=== PATIENT | female | born 1960 | race Caucasian/White ===

== ENCOUNTER 2016-06-22 12:04 | Day surgery (SDC) | payer BC ==
--- NOTE | 2016-06-22 06:08 | PCM.HP ---
H&P History of Present Illness - General Date of Service: 06/22/16 Admit Problem/Dx: history of incomplete colonoscopy, hx of hematochezia, history of diarrhea, history of MRSA-positive stool culture, reflux, hiatal hernia Source of Information: Patient - History of Present Illness Initial Comments - Free Text/Narative: The patient is a 56-year-old female referred by Supriya Canseco NP for colonoscopy. She was last evaluated on 05/16/16 and reports no/the following changes to her health . She denies any constipation/diarrhea/hematochezia. she does have some intermittent lower quadrant pain. CT scan was advised at last visit. She had "things come up" and has not completed this. She still does have reflux and does avoid spicy foods and eating late. She does take Zantac for this. She does have a hx of MRSA in stool culture in 2016. 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 I did contact Dr. Cordova at [facility] regarding stool culture. NO need to repeat culture/intervention if patient is asymptomatic. Hx of incomplete for bloody stools, diarrhea, hx of MRSA in stool culture. She reports she had a colonoscopy to evaluate her symptoms and this was incomplete as she could not complete the GoLYTELY prep. She was evaluated on 06/28/2015 at the [facility] emergency department. At that time she did have a slightly elevated white count at 13.59. Neutrophil count was elevated at 80. Lymphocytes were low at 10. CMP did show glucose elevated 117. Otherwise was normal, however, albumin was slightly low at 3. EKG showed normal ECG in sinus rhythm. She was treated with Cipro by the emergency department. I do see that the MRSA culture showed resistance to Cipro. Patient was evaluated 06/30/2015 by her primary care provider. Per note microbiology staff was consulted and Cipro course was extended. The patient had a incomplete colonoscopy on 07/20/2015. Colonoscopy was aborted due to inadequate prep. There was liquid and particulate matter throughout the entire rectum and lower sigmoid areas. Patient reports she "Took Cipro and cleared things up." - Related Data Allergies/Adverse Reactions: Allergies Allergy/AdvReac Type Severity Reaction Status Date / Time sulfa Allergy Hives Uncoded 06/21/16 16:30 Home Medications: Home Meds Levothyroxine Sodium [Synthroid] 200 mcg PO DAILY 06/27/15 [History] Sertraline HCl [Zoloft] 100 mg PO DAILY 06/27/15 [History] Fexofenadine/Pseudoephedrine [Carola-D 12 Hour] 1 tab PO BID PRN 06/21/16 [ History] Fish Oil/[place]-3 Fatty Acids [Fish Oil 1,000 MG] 1,000 mg PO DAILY 06/21/16 [ History] Fluticasone Propionate [Flonase Allergy Relief] 1 spray NASBOTH DAILY PRN [History] Multivitamin [Daily Mynor] 1 tab PO DAILY 06/21/16 [History] Past Medical History HEENT History: Reports: Impaired Vision Cardiovascular History: Reports: None Respiratory History: Reports: None Gastrointestinal History: Reports: Hiatal Hernia, Other (See Below) Other Gastrointestinal History: hematochezia, diarrhea, RLQ pain 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 Neurological History: Reports: None Psychiatric History: Reports: Anxiety, Depression Endocrine/Metabolic History: Reports: Hypothyroidism Hematologic History: Reports: None Immunologic History: Reports: None Oncologic (Cancer) History: Reports: None Dermatologic History: Reports: None - Past Surgical History Head Surgeries/Procedures: Reports: None HEENT Surgical History: Reports: Cataract Surgery, Tonsillectomy GI Surgical History: Reports: Colonoscopy, EGD Female Surgical History: Reports: Section Musculoskeletal Surgical History: Reports: Other (See Below) Other Musculoskeletal Surgeries/Procedures:: neck fusion of T2T3T4 Social & Family History - Tobacco Use Smoking Status *Q: Never Smoker Second Hand Smoke Exposure: No - Recreational Drug Use Recreational Drug Use: No Drug Use in Last 12 Months: No H&P Review of Systems - Review of Systems: Review Of Systems: See Below Free Text/Narrative: Denies any exertional chest pain or shortness of breath. History of any easy bleeding or bruising. No personal or familial history of clotting or bleeding disorders. No history of anesthetic complications. No history of familial anesthetic complications. Denies presence/history of chest pain, palpitations, lower extremity edema, dyspnea at rest, orthopnea, claudication, wheezing, obstructive sleep apnea, chronic cough, upper respiratory symptoms in the last two weeks. No history of blood thinner use. No history of anemia. No history of seizure or stroke. No history of fever, chills, or nightsweats. No prior cardiology or pulmonology evaluation. All other systems reviewed and were negative except as per history of present illness. General: Reports: No Symptoms. Denies: Fever, Chills HEENT: Reports: No Symptoms Pulmonary: Reports: No Symptoms. Denies: Shortness of Breath Cardiovascular: Reports: No Symptoms. Denies: Chest Pain, Palpitations Gastrointestinal: Reports: Other (see hpi) Genitourinary: Reports: No Symptoms Musculoskeletal: Reports: No Symptoms Skin: Reports: No Symptoms Psychiatric: Reports: No Symptoms Neurological: Reports: No Symptoms Hematologic/Lymphatic: Reports: No Symptoms Immunologic: Reports: No Symptoms Exam - Exam Exam: See Below - Vital Signs Weight: 99.79 kg - Exam General: Alert, Oriented HEENT: Conjunctiva Clear. No: Scleral Icterus Lungs: Clear to Auscultation, Normal Respiratory Effort Cardiovascular: Regular Rate, Regular Rhythm, Normal S1, Normal S2 Abdomen: Soft. No: Tenderness Back Exam: Normal Inspection Extremities: Normal Inspection. No: Clubbing, Edema Skin: Warm, Dry, Intact Neuro Extensive - Mental Status: Alert, Oriented x3, Normal Mood/Affect, Normal Cognition, Memory Intact Psychiatric: Alert, Normal Affect, Normal Mood *Q Meaningful Use (ADM) - VTE *Q VTE Criteria *Q: - Stroke *Q Stroke Criteria *Q: - AMI *Q AMI Criteria *Q: - Problem List (1) Hematochezia SNOMED Code(s): 346711555 ICD Code: K92.1 - MELENA Status: Acute Current Visit: Yes (2) History of diarrhea SNOMED Code(s): 642955578 ICD Code: Z87.898 - PERSONAL HISTORY OF OTHER SPECIFIED CONDITIONS Status: Acute Current Visit: Yes (3) MRSA (methicillin resistant staph aureus) culture positive SNOMED Code(s): 944967520, 311368840 ICD Code: Z22.322 - CARRIER OR SUSPECTED CARRIER OF METHICILLIN RESIS STAPH Status: Acute Current Visit: Yes (4) Reflux esophagitis SNOMED Code(s): 228273893 ICD Code: K21.0 - GASTRO-ESOPHAGEAL REFLUX DISEASE WITH ESOPHAGITIS Status : Acute Current Visit: Yes (5) Hiatal hernia SNOMED Code(s): 41351071 ICD Code: K44.9 - DIAPHRAGMATIC HERNIA WITHOUT OBSTRUCTION OR GANGRENE Status: Acute Current Visit: Yes Problem List Initiated/Reviewed/Updated: Yes Assessment/Plan Comment:: 56yr female with history of incomplete colonoscopy, hx of hematochezia, history of diarrhea, history of MRSA-positive stool culture, reflux, hiatal hernia need for repeat diagnostic colonoscopy with possible hemorrhoidal banding and diagnostic EGD Patient can perform 4 METS of physical activity without chest pain or shortness of breath. Chronic lower abdominal pain PLAN: We discussed performing a diagnostic Colonoscopy with possible hemorrhoidal banding and diagnostic EGD. We discussed the procedure and risks and benefits including, pain, bleeding, damage to surrounding structures, need for additional procedure and bowel perforation. . This procedure will be done at [facility] due to BMI of 43.01 Patient completed 2 days of clear liquid diet, with MiraLAX prep with Amitiza she was unable to finish or tolerate the GoLYTELY previously. She has had intermittent lower abdominal pain since July 2015 with her bout of diarrhea and bloody stools. CT the abdomen and pelvis with IV and oral contrast was previoulsy ordered further evaluate patient did not have this completed as recommended. She does plan to have this completed after endoscopy. This patient was evaluated with Dr. Josephine Martínez, plan formulated by Dr. Josephine Mejias NP scribing for Dr Josephine Martínez
[~2016-06-22 12:04] MED LIST: Lactated Ringers 1,000 ML IV SCH; Lidocaine 1%/Sod Bicarbonate in NS 8.4% 1 ML Syringe IV PRN; Sodium Chloride 0.9% 10 ML Syringe FLUSH PRN
[2016-06-22] MEDS ORDERED: Lidocaine 1% 6 ML ONE (12:13)
[2016-06-22] MEDS ORDERED: fentaNYL 100 MCG/2 ML SDV ONE (12:14)
[2016-06-22] MEDS ORDERED: Propofol 200 MG/20 ML SDV ONE ×3 (12:14→15:05)
[2016-06-22] MEDS ORDERED: Midazolam 1 MG/ML 2 ML SDV ONE (12:14)
--- NOTE | 2016-06-22 12:58 | PCM.PREANE ---
Preanesthetic Assessment - Anesthesia/Transfusion/Family Hx Anesthesia History: Prior Anesthesia Without Reaction Family History of Anesthesia Reaction: No Transfusion History: Unknown Type of Transfusion Reactions: Reports: Unknown - Review of Systems General: No Symptoms, Other (MRSA positive) Pulmonary: No Symptoms Cardiovascular: No Symptoms Gastrointestinal: Other (hiatal hernia, GERD) Neurological: No Symptoms, Other (S/P T2-4 fusion) Other: Reports: Thyroid Problems, Anxiety - Physical Assessment NPO Status Date: 06/22/16 NPO Status Time: 03:00 Pulse: 77 O2 Sat by Pulse Oximetry: 98 Respiratory Rate: 20 Blood Pressure: 163/96 Vital Signs: Last Vital Signs Temp 36.5 C 06/22/16 12:39 Pulse 77 06/22/16 12:39 Resp 20 06/22/16 12:39 BP 163/96 H 06/22/16 12:39 Pulse Ox 98 06/22/16 12:39 Height: 1.68 m Weight: 99.79 kg ASA Class: 2 Mental Status: Alert & Oriented x3 Airway Class: Mallampati = 2 Dentition: Reports: Normal Dentition Thyro-Mental Finger Breadths: 3 Mouth Opening Finger Breadths: 3 ROM/Head Extension: Full Lungs: Clear to auscultation, Normal respiratory effort Cardiovascular: Regular Rate, Regular Rhythm - Allergies Allergies/Adverse Reactions: Allergies Allergy/AdvReac Type Severity Reaction Status Date / Time sulfa Allergy Hives Uncoded 06/21/16 16:30 - Blood Blood Available: No Product(s) Available: None - Anesthesia Plan Pre-Op Medication Ordered: None - Acknowledgements Anesthesia Type Planned: MAC Pt an Appropriate Candidate for the Planned Anesthesia: Yes Alternatives and Risks of Anesthesia Discussed w Pt/Guardian: Yes Pt/Guardian Understands and Agrees with Anesthesia Plan: Yes PreAnesthesia Questionnaire HEENT History: Reports: Impaired Vision Cardiovascular History: Reports: None Respiratory History: Reports: None Gastrointestinal History: Reports: Hiatal Hernia, Other (See Below) Other Gastrointestinal History: hematochezia, diarrhea, RLQ pain 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 Neurological History: Reports: None Psychiatric History: Reports: Anxiety, Depression Endocrine/Metabolic History: Reports: Hypothyroidism Hematologic History: Reports: None Immunologic History: Reports: None Oncologic (Cancer) History: Reports: None Dermatologic History: Reports: None - Past Surgical History Head Surgeries/Procedures: Reports: None HEENT Surgical History: Reports: Cataract Surgery, Tonsillectomy GI Surgical History: Reports: Colonoscopy, EGD Female Surgical History: Reports: Section Musculoskeletal Surgical History: Reports: Other (See Below) Other Musculoskeletal Surgeries/Procedures:: neck fusion of T2T3T4 - SUBSTANCE USE Smoking Status *Q: Never Smoker Second Hand Smoke Exposure: No Recreational Drug Use History: No - HOME MEDS Home Medications: Home Meds Levothyroxine Sodium [Synthroid] 200 mcg PO DAILY 06/27/15 [History] Sertraline HCl [Zoloft] 100 mg PO DAILY 06/27/15 [History] Fexofenadine/Pseudoephedrine [Carola-D 12 Hour] 1 tab PO BID PRN 06/21/16 [ History] Fish Oil/[place]-3 Fatty Acids [Fish Oil 1,000 MG] 1,000 mg PO DAILY 06/21/16 [ History] Fluticasone Propionate [Flonase Allergy Relief] 1 spray NASBOTH DAILY PRN [History] Multivitamin [Daily Mynor] 1 tab PO DAILY 06/21/16 [History] - CURRENT (IN HOUSE) MEDS Current Meds: Current Medications Lactated Ringer's (Ringers, Lactated) 1,000 mls @ 125 mls/hr IV ASDIRECTED [facility] Stop: 06/22/16 23:00 Last Admin: 06/22/16 12:36 Dose: 125 mls/hr Lidocaine/Sodium Bicarbonate (Buffered Lidocaine 1% In Ns 8.4%) 0.25 ml IV ONETIME PRN PRN Reason: Prior to IV Start Stop: 06/22/16 18:00 Last Admin: 06/22/16 12:36 Dose: 0.25 ml Sodium Chloride (Saline Flush) 10 ml FLUSH ASDIRECTED PRN PRN Reason: Keep Vein Open Stop: 06/22/16 18:00 Discontinued Medications Fentanyl (Sublimaze) Confirm Administered Dose 100 mcg .ROUTE .STK-MED ONE Stop: 06/22/16 12:15 Lidocaine HCl (Xylocaine-Mpf 1%) Confirm Administered Dose 6 mls @ as directed .ROUTE .STK-MED ONE Stop: 06/22/16 12:14 Midazolam HCl (Versed 1 Mg/Ml) Confirm Administered Dose 2 mg .ROUTE .STK-MED ONE Stop: 06/22/16 12:15 Propofol (Diprivan 20 Ml) Confirm Administered Dose 200 mg .ROUTE .[facility] Stop: 06/22/16 12:15
--- NOTE | 2016-06-22 14:15 | PCM.OPNOTE ---
- General Post-Op/Procedure Note Date of Surgery/Procedure: 06/22/16 Operative Procedure(s): 1. Diagnostic EGD with cold forceps biopsy. 2. Diagnostic colonoscopy Pre Op Diagnosis: History of incomplete colonoscopy, history of hematochezia, history of diarrhea, reflux, history of hiatal hernia Post-Op Diagnosis: Gastritis, gastric ulcers, duodenitis, duodenal ulcers in D1 and D2, normal appearing colon Anesthesia Technique: MAC Primary Surgeon: Josephine Martínez Anesthesia Provider: Melissa Phoenix Registered Nurse: Zayra Tomlinson Pathology: 1. Small bowel biopsy 2. Antral biopsy 3. Distal esophageal biopsy Fluid Replacement, Intraop: 900 (mL crystalloid ) EBL in mLs: 2 Complications: None Condition: Good Free Text/Narrative:: INDICATION FOR PROCEDURE: The patient is a 56-year-old woman who was referred to me by AUNG Santana for evaluation for a history of incomplete colonoscopy, history of hematochezia and diarrhea, reflux and history of hiatal hernia. Performing a colonoscopy and EGD and the associated risks of the procedures had been discussed with the patient. The patient found these risks acceptable and agreed to proceed. DESCRIPTION OF PROCEDURE: The patient was taken to the operating room and placed in the left lateral decubitus position. After induction of adequate sedation, a bite block was placed. A standard Olympus gastroscope was inserted into the oropharynx and guided down the esophagus without difficulty. The gastroesophageal junction was appreciated at 39 cm from the teeth. There was no evidence of stricture or esophageal ulcerations. The scope was advanced into the stomach, and there was gastritis and cratered and linear antral ulcers which were nonbleeding. The scope was passed into the proximal jejunum and the duodenum which showed duodenitis with small duodenal ulcers and D1 and D2 which were nonbleeding. The proximal jejunum was grossly normal in appearance. Multiple cold forceps biopsies were obtained of the proximal jejunum and duodenum. The scope was withdrawn into the antrum, and additional cold forceps biopsies were obtained. The remainder of the gastric body was examined, and there were no additional findings. The scope was retroflexed, and there was no obvious hiatal hernia. The scope was straightened and withdrawn to the GE junction. Additional cold forceps biopsies were obtained of the distal esophagus. The scope was withdrawn through the remainder of the esophagus and no further abnormalities were noted. The posterior oropharynx was grossly normal in appearance. The scope was fully withdrawn and attention was then turned to the colonoscopy. A digital rectal exam was performed which was unremarkable. A pediatric Olympus colonoscope was inserted into the rectum and guided under direct visualization to the appendiceal orifice and ileocecal valve. The scope was then slowly withdrawn through the colon. The quality of the prep was good. There was no evidence of angiodysplasias, diverticulum or mass lesions. The scope was withdrawn into the rectum and retroflexed. There was no significant prominence of the patient's internal hemorrhoids. The scope was straightened, the colon was desufflated, and the scope was withdrawn. The patient was awakened from sedation and transferred to the recovery room in stable condition having tolerated the procedure well. POSTOPERATIVE PLAN: She is to start Protonix 40mg daily and Carafate three times daily for her ulcerative disease. She was also asked to follow a GERD/ gastritis diet. She is to follow-up in the office in approximately 2 weeks for further discussion of her pathology and her symptoms. The patient is to call with any worsening of symptoms or questions prior to the appointment.
[2016-06-22] MEDS ORDERED: Lactated Ringers 1,000 ML ONE (14:32)
--- NOTE | 2016-06-22 15:07 | PCM48HPAN ---
Post Anesthesia Note - EVALUATION WITHIN 48HRS OF ANESTHETIC Vital Signs in Normal Range: Yes Patient Participated in Evaluation: Yes Respiratory Function Stable: Yes Airway Patent: Yes Cardiovascular Function Stable: Yes Hydration Status Stable: Yes Pain Control Satisfactory: Yes Nausea and Vomiting Control Satisfactory: Yes Mental Status Recovered: Yes
[2016-06-22 15:47] VITALS: BP 120/65
== END 2016-06-22 15:45 | disposition home or self-care (01) ==
LOC: JD.SDS 12:04
PROVIDERS: ATTEND Surgery
DX: R19.7 Diarrhea, unspecified (principal); K29.50 Unspecified chronic gastritis without bleeding; K29.80 Duodenitis without bleeding; K26.9 Duodenal ulcer, unspecified as acute or chronic, without hemorrhage or perforation; Z86.14 Personal history of Methicillin resistant Staphylococcus aureus infection; Z80.3 Family history of malignant neoplasm of breast
CPT/HCPCS: 43239; 45378; 88305; J2250; J3010; J7120; 00810; 88304-26; J2704

== ENCOUNTER 2021-02-15 07:41 | Day surgery (SDC) | payer BC ==
--- NOTE | 2021-02-15 07:30 | PCM.PREANE ---
Preanesthetic Assessment - Anesthesia/Transfusion/Family Hx Anesthesia History: Prior Anesthesia Without Reaction Family History of Anesthesia Reaction: No Transfusion History: Unknown Type of Transfusion Reactions: Reports: Unknown - Review of Systems General: Other (morbid obesity, BMI 44) Pulmonary: Other (bergmanns syndrome listed on chart, patient denies) Cardiovascular: No Symptoms Gastrointestinal: Other (GERD, hx of gastric ulcer, on protonix) Other: Reports: Thyroid Problems (on supplement), Anxiety - Physical Assessment NPO Status Date: 02/14/21 NPO Status Time: 21:00 Vital Signs: Last Vital Signs Temp 36.6 C 02/15/21 07:00 Pulse 74 02/15/21 07:00 Resp 18 02/15/21 07:00 BP 151/80 H 02/15/21 07:00 Pulse Ox 98 02/15/21 07:00 ASA Class: 2 Mental Status: Alert & Oriented x3 Airway Class: Mallampati = 2 Dentition: Reports: Normal Dentition Thyro-Mental Finger Breadths: 3 Mouth Opening Finger Breadths: 3 ROM/Head Extension: Full Lungs: Clear to Auscultation, Normal Respiratory Effort Cardiovascular: Regular Rate, Regular Rhythm - Allergies Allergies/Adverse Reactions: Allergies Allergy/AdvReac Type Severity Reaction Status Date / Time celecoxib [From Celebrex] Allergy Cannot Verified 02/12/21 13:32 Remember Sulfa (Sulfonamide Allergy Cannot Verified 02/12/21 13:32 Antibiotics) Remember - Blood Blood Available: No Product(s) Available: None - Anesthesia Plan Pre-Op Medication Ordered: None - Acknowledgements Anesthesia Type Planned: General Anesthesia Pt an Appropriate Candidate for the Planned Anesthesia: Yes Alternatives and Risks of Anesthesia Discussed w Pt/Guardian: Yes Pt/Guardian Understands and Agrees with Anesthesia Plan: Yes PreAnesthesia Questionnaire HEENT History: Reports: Impaired Vision Cardiovascular History: Reports: None Respiratory History: Reports: None Gastrointestinal History: Reports: Hiatal Hernia, Other (See Below) Other Gastrointestinal History: hematochezia, diarrhea, RLQ pain LOW VISION 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: 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 Neurological History: Reports: None Psychiatric History: Reports: Anxiety, Depression Endocrine/Metabolic History: Reports: Hypothyroidism Hematologic History: Reports: None Immunologic History: Reports: None Oncologic (Cancer) History: Reports: None Dermatologic History: Reports: None - Past Surgical History Head Surgeries/Procedures: Reports: None HEENT Surgical History: Reports: Cataract Surgery, Tonsillectomy GI Surgical History: Reports: Colonoscopy, EGD Female Surgical History: Reports: Section Musculoskeletal Surgical History: Reports: Other (See Below) Other Musculoskeletal Surgeries/Procedures:: neck fusion of T2T3T4 - HOME MEDS Home Medications: Home Meds Levothyroxine Sodium [Synthroid] 200 mcg PO DAILY 06/27/15 [History] Sertraline HCl [Zoloft] 100 mg PO DAILY 06/27/15 [History] Fexofenadine/Pseudoephedrine [Carola-D 12 Hour] 1 tab PO BID PRN 06/21/16 [History] Fish Oil/[place]-3 Fatty Acids [Fish Oil 1,000 MG] 1,000 mg PO DAILY 06/21/16 [History] Fluticasone Propionate [Flonase Allergy Relief] 1 spray NASBOTH DAILY PRN 06/21/16 [History] Multivitamin [Daily Mynor] 1 tab PO DAILY 06/21/16 [History] Pantoprazole Sodium [Protonix] 40 mg PO DAILY #90 tablet. 06/22/16 [Rx] - CURRENT (IN HOUSE) MEDS Current Meds: Current Medications Lactated Ringer's (Ringers, Lactated) 1,000 mls @ 125 mls/hr IV ASDIRECTED [facility] Stop: 02/15/21 23:00 Lidocaine/Sodium Bicarbonate (Lidocaine 1%/Sod Bicarbonate In Ns 8.4% 1 Ml Syringe) 0.25 ml IDERM ONETIME PRN PRN Reason: Prior to IV Start Stop: 02/15/21 18:00 Sodium Chloride (Sodium Chloride 0.9% 10 Ml Syringe) 10 ml FLUSH 0900,2100 [facility] Stop: 02/15/21 18:00 Discontinued Medications Bupivacaine HCl (Bupivacaine 0.5% 30 Ml Sdv) Confirm Administered Dose 30 ml .ROUTE .STK-MED ONE Stop: 02/15/21 07:10 Cefazolin Sodium (Cefazolin 1 Gm Vial) Confirm Administered Dose 2 gm .ROUTE .STK-MED ONE Stop: 02/15/21 07:07 Dexamethasone (Dexamethasone 4 Mg/Ml 5 Ml Mdv) Confirm Administered Dose 20 mg .ROUTE .STK-MED ONE Stop: 02/15/21 07:07 Fentanyl (Fentanyl 250 Mcg/5 Ml Sdv) Confirm Administered Dose 250 mcg .ROUTE .STK-MED ONE Stop: 02/15/21 07:08 Lactated Ringer's (Ringers, Lactated) Confirm Administered Dose 1,000 mls @ as directed .ROUTE .STK-MED ONE Stop: 02/15/21 07:07 Lidocaine HCl (Xylocaine-Mpf 1%) Confirm Administered Dose 4 mls @ as directed .ROUTE .STK-MED ONE Stop: 02/15/21 07:08 Midazolam HCl (Midazolam 1 Mg/Ml 2 Ml Sdv) Confirm Administered Dose 2 mg .ROUTE [facility] Stop: 02/15/21 07:08 Ondansetron HCl (Ondansetron 4 Mg/2 Ml Sdv) Confirm Administered Dose 4 mg .ROUTE [facility] Stop: 02/15/21 07:07 Propofol (Propofol 200 Mg/20 Ml Sdv) Confirm Administered Dose 200 mg .ROUTE .STK-MED ONE Stop: 02/15/21 07:08 Rocuronium [place] (Rocuronium 50 Mg/5 Ml Vial) Confirm Administered Dose 50 mg .ROUTE [facility] Stop: 02/15/21 07:07
[~2021-02-15 07:41] MED LIST changes: +Bupivacaine 0.5% 30 ML SDV ONE; +Dexamethasone 4 MG/ML 5 ML MDV ONE; +Lactated Ringers 1,000 ML ONE; +Lidocaine 1% 4 ML ONE; +Lidocaine 1%/Sod Bicarbonate in NS 8.4% 1 ML Syringe IDERM PRN; -Lidocaine 1%/Sod Bicarbonate in NS 8.4% 1 ML Syringe IV PRN; +Midazolam 1 MG/ML 2 ML SDV ONE; +Ondansetron 4 MG/2 ML SDV ONE; +Propofol 200 MG/20 ML SDV ONE; +Rocuronium 50 MG/5 ML Vial ONE; -Sodium Chloride 0.9% 10 ML Syringe FLUSH PRN; +Sodium Chloride 0.9% 10 ML Syringe FLUSH SCH; +ceFAZolin 1 GM Vial ONE; +fentaNYL 250 MCG/5 ML SDV ONE
[2021-02-15] MEDS ORDERED: Ketorolac 30 MG/ML SDV ONE (08:22)
[2021-02-15] MEDS ORDERED: ePHEDrine 50 MG/ML SDV ONE (08:30)
[2021-02-15] MEDS ORDERED: Bupivacaine 0.5% 30 ML SDV ONE (08:31)
[2021-02-15] MEDS ORDERED: Ketamine 500 mg/10 ML MDV ONE (08:53)
[2021-02-15] MEDS ORDERED: fentaNYL 100 MCG/2 ML SDV IVPUSH PRN (09:44)
[2021-02-15] MEDS ORDERED: HYDROmorphone 0.5 MG/0.5 ML Syringe IVPUSH PRN (09:44)
[2021-02-15] MEDS ORDERED: Ondansetron 4 MG/2 ML SDV IVPUSH PRN (09:44)
--- NOTE | 2021-02-15 09:47 | PCM.POSTAN ---
POST ANESTHESIA ASSESSMENT - MENTAL STATUS Mental Status: Alert, Oriented - VITAL SIGNS Vital Signs: Last Vital Signs Temp 36.6 C 02/15/21 07:00 Pulse 74 02/15/21 07:00 Resp 18 02/15/21 07:00 BP 151/80 H 02/15/21 07:00 Pulse Ox 98 02/15/21 07:00 - RESPIRATORY Respiratory Status: Respiratory Rate WNL, Airway Patent, O2 Saturation Stable, Supplemental Oxygen - CARDIOVASCULAR CV Status: Pulse Rate WNL, Blood Pressure Stable - GASTROINTESTINAL GI Status: No Symptoms - PAIN Pain Score: 0 - POST OP HYDRATION Hydration Status: Adequate & Stable
--- NOTE | 2021-02-15 10:08 | OR ---
DATE OF OPERATION: 02/15/2021 SURGEON: Og Knox MD PREOPERATIVE DIAGNOSIS: Symptomatic cholelithiasis. POSTOPERATIVE DIAGNOSIS: Symptomatic cholelithiasis. OPERATION PERFORMED: Laparoscopic cholecystectomy. ANESTHESIA: General endotracheal with local anesthetic consisting 1% lidocaine. ESTIMATED BLOOD LOSS: Minimal about 10 mL. COMPLICATIONS: None. FINDINGS: Chronic scarring at the hepatocystic triangle and at the gallbladder fossa. INDICATIONS AND CONSENT: Ms. Jamil is a 60-year-old female who has been having right upper quadrant pain associated with food for several months. The patient presented to my clinic. I evaluated her. She was found to have cholelithiasis. I recommended to proceed with laparoscopic cholecystectomy. Risks, benefits, and alternatives were discussed with the patient and informed consent was obtained. DESCRIPTION OF PROCEDURE: The patient was taken to the operating room, placed in supine position, was padded appropriately. SCDs were placed. Mary Hugger was placed. Preop antibiotics were administered. Then, the abdomen was prepped and draped in the usual sterile fashion. Formal time-out was performed prior to the start of the procedure. I began the procedure by injecting local anesthetic in the infraumbilical position. Incision was made here. Umbilical stalk was elevated and Veress needle was placed, and the abdomen was insufflated to 15 mmHg. A 12 mm trocar then was placed under visualization of 12 and 10 laparoscope. Upon entering into the abdomen, cursory exploration of the abdomen was done, looking at the liver, hiatus, pelvis, right and left quadrants, as well as the midline. There were no injuries to Veress needle insertion or trocar insertion. There were no other unexpected abnormalities. Then, we placed three 5 mm trocars, 1 in the subxiphoid and 2 in the right upper quadrant. The gallbladder was grasped and elevated cranially. The patient was placed in a reverse Trendelenburg with left side down and we began our dissection. Calot triangle was dissected and cystic artery and cystic duct were skeletonized, and critical window of safety was achieved. There was chronic scarring at the hepatocystic triangle. Once this was done, a 5 mm clip set up mechanic was used to clip both the cystic artery and cystic duct with 3 clips and transected with laparoscopic lana, so that 2 clips remained in situ. Electrosurgery was then used to remove the gallbladder from its fossa. Any bleeding points were controlled with electrosurgery. Gallbladder was then placed in the EndoCatch bag. There was no significant bleeding. Total blood loss was about 10 mL. The gallbladder was removed through the umbilical incision confirming stone and it was passed for pathology. Infraumbilical fascia site was closed with 0 Vicryl stitches using Ross Douglas device and skin at all 4 incision sites was closed with 4-0 Monocryl stitches and then Dermabond was applied. The patient tolerated the procedure well. At the end of the procedure, all instruments, sharps, and sponges were counted and found to be correct x2. The patient was awakened, extubated, and taken to the PACU for recovery. The patient will be allowed to return home today and see me in clinic in 2 weeks. NAMITA /[id number] MTDD
--- NOTE | 2021-02-15 10:19 | PCM48HPAN ---
Post Anesthesia Note - EVALUATION WITHIN 48HRS OF ANESTHETIC Vital Signs in Normal Range: Yes Patient Participated in Evaluation: Yes Respiratory Function Stable: Yes Airway Patent: Yes Cardiovascular Function Stable: Yes Hydration Status Stable: Yes Pain Control Satisfactory: Yes Nausea and Vomiting Control Satisfactory: Yes Mental Status Recovered: Yes Vital Signs: Last Vital Signs Temp 36.3 C 02/15/21 09:36 Pulse 53 L 02/15/21 10:10 Resp 16 02/15/21 10:10 BP 129/66 02/15/21 10:10 Pulse Ox 98 02/15/21 10:10
[2021-02-15] MEDS ORDERED: Acetaminophen/HYDROcodone 325-5 MG Tab PO ONE (10:20)
[2021-02-15 12:15] VITALS: BP 122/49
[2021-02-15 12:45] VITALS: PULSE 78
== END 2021-02-15 12:50 | disposition home or self-care (01) ==
LOC: JD.SDS 07:41
PROVIDERS: ATTEND Surgery
DX: K80.10 Calculus of gallbladder with chronic cholecystitis without obstruction (principal); F41.9 Anxiety disorder, unspecified; K21.9 Gastro-esophageal reflux disease without esophagitis; E66.01 Morbid (severe) obesity due to excess calories; E03.9 Hypothyroidism, unspecified; F32.A Depression, unspecified; Z79.890 Hormone replacement therapy; Z98.890 Other specified postprocedural states; Z79.899 Other long term (current) drug therapy; Z88.2 Allergy status to sulfonamides; Z88.8 Allergy status to other drugs, medicaments and biological substances; Z68.41 Body mass index [BMI] 40.0-44.9, adult
CPT/HCPCS: 00790; J0690; J1100; J1885; J2250; J2405; J2704; J2710; J3010; J3490; J7120